=== PATIENT | female | born 1985 | race Caucasian/White ===

== ENCOUNTER 2018-03-17 18:30 | Emergency (ER) | payer BC ==
[2018-03-17 18:41] VITALS: BP 130/89
--- NOTE | 2018-03-17 19:00 | UC ---
Ear Complaint HPI - HPI Summary HPI Summary: 32 yo moses with right otalgia which started today no f/c decreased hearing recent URI - History of Current Complaint Chief Complaint: UCEar Stated Complaint: EAR PAIN Time Seen by Provider: 03/17/18 18:43 Hx Obtained From: Patient Hx Last Menstrual Period: 10/03/13 Onset/Duration: Gradual Onset Severity Initially: Mild Severity Currently: Moderate Pain Intensity: 7 Pain Scale Used: 0-10 Numeric Aggravating Factors: Nothing Alleviating Factors: Nothing Associated Signs/Symptoms: Positive: Hearing Loss - Allergies/Home Medications Allergies/Adverse Reactions: Allergies Allergy/AdvReac Type Severity Reaction Status Date / Time No Known Allergies Allergy Verified 03/17/18 18:40 Home Medications: Home Medications Multivitamin [Multivitamins] 1 cap PO 03/17/18 [History] PMH/Surg Hx/FS Hx/Imm Hx Previously Healthy: Yes - Surgical History Surgical History: Yes Surgery Procedure, Year, and Place: wisdom teeth removed - Family History Known Family History: Positive: Cardiac Disease, Hypertension, Diabetes - Social History Alcohol Use: Rare Substance Use Type: None Smoking Status (MU): Never Smoked Tobacco Have You Smoked in the Last Year: No - Immunization History Most Recent Influenza Vaccination: 09/08/15 Most Recent Tetanus Shot: 02/14/16 Most Recent Pneumonia Vaccination: never Review of Systems Constitutional: Negative Skin: Negative Eyes: Negative ENT: Ear Ache Respiratory: Negative Cardiovascular: Negative Gastrointestinal: Negative Genitourinary: Negative Motor: Negative Neurovascular: Negative Musculoskeletal: Negative Neurological: Negative Psychological: Negative Is Patient Immunocompromised?: No All Other Systems Reviewed And Are Negative: Yes Physical Exam Triage Information Reviewed: Yes Appearance: Well-Appearing, No Pain Distress, Well-Nourished Vital Signs: Initial Vital Signs Temp 98.6 F 03/17/18 18:37 Pulse 86 03/17/18 18:37 Resp 18 03/17/18 18:37 BP 130/89 03/17/18 18:37 Pulse Ox 99 03/17/18 18:37 Vital Signs Reviewed: Yes Eyes: Positive: Conjunctiva Clear ENT: Positive: Hearing grossly normal, TM bulging - R, TM red - R, Uvula midline. Negative: Nasal congestion, Nasal drainage, Tonsillar swelling, Tonsillar exudate, Trismus, Muffled voice, Hoarse voice, Dental tenderness, Sinus tenderness Neck: Positive: Supple, Nontender, No Lymphadenopathy Respiratory: Positive: Lungs clear, Normal breath sounds, No respiratory distress Cardiovascular: Positive: RRR, No Murmur Musculoskeletal: Positive: ROM Intact, No Edema Neurological: Positive: Alert Psychological Exam: Normal Skin Exam: Normal Ear Complaint Course/Dx - Differential Dx/Diagnosis Provider Diagnoses: right otitis media Discharge - Sign-Out/Discharge Documenting (check all that apply): Discharge/Admit/Transfer - Discharge Plan Condition: Stable Disposition: HOME Prescriptions: Amoxicillin PO (*) [Amoxicillin 875 MG (*)] 875 mg PO BID #20 tab Patient Education Materials: Ear Infection (ED) Referrals: Melissa Santos MD [Primary Care Provider] - If Needed Additional Instructions: recheck in 2-3 weeks if hearing not back to normal - Billing Disposition and Condition Condition: STABLE Disposition: HOME
== END 2018-03-17 19:00 | disposition home or self-care (01) ==
LOC: UCEAST 18:30
DX: H66.91 Otitis media, unspecified, right ear (principal)
CPT/HCPCS: 99212; G0463

== ENCOUNTER 2019-01-01 16:21 | Emergency (ER) | payer BC ==
[2019-01-01 16:55] VITALS: BP 127/90
[2019-01-01] MEDS ORDERED: Ondansetron INJ* 2 MG/ML VIAL IV ONE (17:04)
[2019-01-01] MEDS ORDERED: Ketorolac INJ* 30 MG/ML 1 ML VIAL IV PUSH ONE (17:04)
[2019-01-01] MEDS ORDERED: NS 0.9% 1000 ML** 1,000 ML IV.FLUID IV ONE (17:05)
--- NOTE | 2019-01-01 17:15 | ED ---
Abdominal Pain/Female - HPI Summary HPI Summary: 33-year-old female with abrupt onset 30 minutes ago of left flank and back pain that radiates into the front associated with sharp severe pain. She she is also vomited several times. She has no history of this happening before and denies any urinary symptoms to include dysuria or hematuria. There is strong family history for kidney stones in her mother. She denies any other contributory medical history or medications. No surgical history. - History of Current Complaint Chief Complaint: UCBackPain Stated Complaint: BACK PAIN, VOMITING, AND FREQUENT URINATION Time Seen by Provider: 01/01/19 17:04 Hx Obtained From: Patient Hx Last Menstrual Period: IUD Pain Intensity: 10 Allergies/Adverse Reactions: Allergies Allergy/AdvReac Type Severity Reaction Status Date / Time No Known Allergies Allergy Verified 01/01/19 16:55 PMH/Surg Hx/FS Hx/Imm Hx Previously Healthy: Yes - Emergency Endocrine/Hematology History: Denies: Hx Diabetes, Hx Thyroid Disease Cardiovascular History: Denies: Hx Hypertension Respiratory History: Denies: Hx Asthma, Hx Chronic Obstructive Pulmonary Disease (COPD) GI History: Denies: Hx Ulcer - Surgical History Surgery Procedure, Year, and Place: wisdom teeth removed Infectious Disease History: No Infectious Disease History: Denies: Hx Clostridium Difficile, Hx Hepatitis, Hx Human Immunodeficiency Virus (HIV), Hx of Known/Suspected MRSA, Hx Shingles, Hx Tuberculosis, Traveled Outside the [place] in Last 30 Days - Family History Known Family History: Positive: Cardiac Disease, Hypertension, Diabetes, Other - kidney stones in mother - Social History Occupation: Employed Full-time Alcohol Use: Rare Substance Use Type: Reports: None Smoking Status (MU): Never Smoked Tobacco Have You Smoked in the Last Year: No Review of Systems Positive: Chills. Negative: Fever Respiratory: Negative Positive: Abdominal Pain, Vomiting, Nausea Positive: flank pain. Negative: burning, dysuria, frequency, hematuria Musculoskeletal: Negative All Other Systems Reviewed And Are Negative: Yes Physical Exam Triage Information Reviewed: Yes Vital Signs On Initial Exam: Initial Vitals Temp Pulse Resp BP 97.3 F 98 16 127/90 01/01/19 16:51 01/01/19 16:51 01/01/19 16:51 01/01/19 16:51 Vital Signs Reviewed: Yes Appearance: Positive: Ill-Appearing, Pain Distress Skin: Positive: Warm, Dry Eyes: Positive: EOMI ENT: Positive: Normal ENT inspection Neck: Positive: Supple, Nontender Respiratory/Lung Sounds: Positive: Clear to Auscultation Cardiovascular: Positive: Tachycardia Abdomen Description: Positive: Nontender, No Organomegaly, Soft Pelvic Exam: Positive: Other - No CVA tenderness Musculoskeletal: Positive: Normal, Strength/ROM Intact Neurological: Positive: Normal, Alert, Oriented to Person Place, Time Psychiatric: Positive: Normal AVPU Assessment: Alert Diagnostics - Vital Signs Vital Signs Temp Pulse Resp BP 01/01/19 16:51 97.3 F 98 16 127/90 - Laboratory Lab Statement: Any lab studies that have been ordered have been reviewed, and results considered in the medical decision making process. Abdominal Pain Fem Course/Dx - Course Course Of Treatment: Nurse's notes reviewed. Patient is relating symptoms concerning for renal colic. There is no available CAT scan here today. She was given IV fluids, Toradol and Zofran for her symptoms. The ambulance was called and transfer arrangements were made for the ER. I spoke with chart nurse there who is expecting the patient. The patient is starting to improve here. - Diagnoses Provider Diagnoses: Renal colic on left side, Acute vomiting - Provider Notifications Discussed Care Of Patient With: Kylee Feldman - ER charge nurse expecting patient Discharge - Sign-Out/Discharge Documenting (check all that apply): Patient Departure All imaging exams completed and their final reports reviewed: No Studies - Discharge Plan Condition: Critical Disposition: TRANS HIGHER LVL OF CARE FAC Referrals: Melissa Santos MD [Primary Care Provider] - Additional Instructions: go directly to the ER - Billing Disposition and Condition Condition: CRITICAL Disposition: Trans Higher Lvl of Care Fac - Attestation Statements Document Initiated by Scribe: No
== END 2019-01-01 17:33 | disposition short-term general hospital (02) ==
LOC: UCEAST 16:21
DX: R11.10 Vomiting, unspecified (principal); N20.0 Calculus of kidney; Z84.1 Family history of disorders of kidney and ureter
CPT/HCPCS: 96374; 96375; 99213; G0463; J1885; J2405

== ENCOUNTER → 2019-01-01 17:57 | Emergency (ER) | payer BC ==
[~2019-01-01 17:57] MED LIST: ED cefTRIAXone 1 GM/50 ML 1 GM/50 ML PREMIX.SET IVPB ONE; Ketorolac INJ* 30 MG/ML 1 ML VIAL IV PUSH ONE; Morphine VIAL* 10 MG/ML 1 ML VIAL IV ONE; Ondansetron INJ* 2 MG/ML VIAL IV ONE; Sulfamethox/Trimethoprim DS 800/160* TAB PO ONE; cefTRIAXone(*) 2 GM ADDV.VIAL IVPB ONE; oxyCODONE/Acetamin 5/325 MG* TAB PO ONE
[2019-01-01 18:58] LABS: ABS Basophils 0 10^3/ul (0-0.2); ABS Eosinophils 0 10^3/ul (0-0.6); ABS Lymphocytes 1.2 10^3/ul (1.0-4.8); ABS Monocytes 0.5 10^3/ul (0-0.8); ABS Neutrophils 11.8 10^3/ul (1.5-7.7); ABS Nucleated RBC 0 10^3/ul; Eosinophil % 0.1 %; Hematocrit 42 % (35-47); Hemoglobin 14.5 g/dl (12.0-16.0); Lymphocyte % 8.6 %; Mean Corpuscular HGB Conc 34 g/dl (31-36); Mean Corpuscular Hemoglobin 29 pg (27-31); Mean Corpuscular Volume 84 fL (80-97); Mean Platelet Volume 8.4 fL (7.4-10.4); Nucleated Red Blood Cells % 0; Platelet Count 212 10^3/ul (150-450); Red Blood Count 5.07 10^6/ul (4.00-5.40); Red Cell Distribution Width 13 % (10.5-15); White Blood Count 13.5 10^3/ul (3.5-10.8)
[2019-01-01 19:17] LABS: ALT 15 U/L (7-52); AST 15 U/L (13-39); Albumin 4.5 g/dL (3.2-5.2); Albumin/Globulin Ratio 1.5 (1-3); Alkaline Phosphatase 52 U/L (34-104); Anion Gap 10 mmol/L (2-11); BUN/Creatinine Ratio 18.7 (8-20); Blood Urea Nitrogen 17 mg/dL (6-24); CO2 Carbon Dioxide 25 mmol/L (22-32); Calcium 8.8 mg/dL (8.6-10.3); Chloride 106 mmol/L (101-111); EGFR African American 86.1 (>60); EGFR Non-African American 71.2 (>60); Glucose 114 mg/dL (70-100); Potassium 3.1 mmol/L (3.5-5.0); Sodium 141 mmol/L (135-145); Total Protein 7.5 g/dL (6.4-8.9)
[2019-01-01 19:19] LABS: Activated Partial Thrombo Time 23.7 seconds (26.0-36.3); INR 0.97 (0.77-1.02)
--- NOTE | 2019-01-01 19:30 | ED ---
GI/ HPI - HPI Summary HPI Summary: This patient is a 33 year old F brought in by ambulance to [facility] upon referral from Urgent Care accompanied by her with a chief complaint of sudden onset left flank pain since 15:30. Pt reports that the pain radiates to the LLQ. The patient rates the pain 4/10 in severity. Symptoms aggravated by nothing. Symptoms alleviated by nothing. Patient reports emesis x4, chills, diaphoresis, increased frequency of urination, and dysuria. Patient denies fever , or hematuria. LNMP 2 weeks ago. Patient has an IUD. - History of Current Complaint Chief Complaint: EDFlankPain Time Seen by Provider: 01/01/19 18:01 Stated Complaint: FLANK PAIN Hx Obtained From: Patient Hx Last Menstrual Period: IUD Onset/Duration: Started Hours Ago, Atraumatic, Still Present Timing: Lasting Hours Severity: Moderate Current Severity: Mild Pain Intensity: 4 Location of Pain: Radiates to: - LLQ, Flank - left flank pain Pain Radiates to: LLQ Associated Signs and Symptoms: Positive: Nausea, Vomiting, Dysuria, Flank Pain - left side, Chills. Negative: Fever, Hematuria Aggravating Factor(s): Nothing Alleviating Factor(s): Nothing - Allergy/Home Medications Allergies/Adverse Reactions: Allergies Allergy/AdvReac Type Severity Reaction Status Date / Time No Known Allergies Allergy Verified 01/01/19 16:55 PMH/Surg Hx/FS Hx/Imm Hx Endocrine/Hematology History: Denies: Hx Diabetes, Hx Thyroid Disease Cardiovascular History: Denies: Hx Hypertension Respiratory History: Denies: Hx Asthma, Hx Chronic Obstructive Pulmonary Disease (COPD) GI History: Denies: Hx Ulcer - Surgical History Surgery Procedure, Year, and Place: wisdom teeth removed. x2 Infectious Disease History: No Infectious Disease History: Denies: Hx Clostridium Difficile, Hx Hepatitis, Hx Human Immunodeficiency Virus (HIV), Hx of Known/Suspected MRSA, Hx Shingles, Hx Tuberculosis, Traveled Outside the [place] in Last 30 Days - Family History Known Family History: Positive: Cardiac Disease, Hypertension, Diabetes, Other - kidney stones in mother - Social History Alcohol Use: Rare Substance Use Type: Reports: None Smoking Status (MU): Never Smoked Tobacco Have You Smoked in the Last Year: No Review of Systems Positive: Chills. Negative: Fever Negative: Erythema Negative: Sore Throat Negative: Chest Pain Negative: Shortness Of Breath, Cough Positive: Abdominal Pain - LLQ pain, Vomiting, Nausea Positive: dysuria, frequency - increased, flank pain - left. Negative: hematuria Negative: Myalgia, Edema Negative: Rash Neurological: Negative - negative dizziness All Other Systems Reviewed And Are Negative: Yes Physical Exam - Summary Physical Exam Summary: Constitutional: Well-developed, Well-nourished, Alert. (-) Distressed Skin: Warm, Dry HENT: Normocephalic; Atraumatic Eyes: Conjunctiva normal Neck: Musculoskeletal ROM normal neck. (-) JVD, (-) Stridor, (-) Tracheal deviation Cardio: Rhythm regular, rate normal, Heart sounds normal; Intact distal pulses; The pedal pulses are 2+ and symmetric. Radial pulses are 2+ and symmetric. (-) Murmur Pulmonary/Chest wall: Effort normal. (-) Respiratory distress, (-) Wheezes, (-) Rales Abd: Soft, (-) epigastric tenderness, (-) Distension, (-) Guarding, (-) Rebound , mild left CVA tenderness. Musculoskeletal: (-) Edema Lymph: (-) Cervical adenopathy Neuro: Alert, Oriented x3 Psych: Mood and affect Normal Triage Information Reviewed: Yes Vital Signs On Initial Exam: Initial Vitals Temp Pulse Resp BP Pulse Ox 98.0 F 76 15 136/74 99 01/01/19 18:16 01/01/19 18:16 01/01/19 18:16 01/01/19 18:16 01/01/19 18:16 Vital Signs Reviewed: Yes Diagnostics - Vital Signs Vital Signs Temp Pulse Resp BP Pulse Ox 01/01/19 18:16 98.0 F 76 15 136/74 99 - Laboratory Lab Results: Lab Results 01/01/19 01/01/19 01/01/19 Range/Units 18:49 18:49 18:49 WBC 13.5 H (3.5-10.8) 10^3/ul RBC 5.07 (4.00-5.40) 10^6/ul Hgb 14.5 (12.0-16.0) g/dl Hct 42 (35-47) % MCV 84 (80-97) fL MCH 29 (27-31) pg MCHC 34 (31-36) g/dl RDW 13 (10.5-15) % Plt Count 212 (150-450) 10^3/ul MPV 8.4 (7.4-10.4) fL Neut % (Auto) 87.6 % Lymph % (Auto) 8.6 % [facility] % (Auto) 3.6 % Eos % (Auto) 0.1 % Baso % (Auto) 0.1 % Absolute Neuts (auto) 11.8 H (1.5-7.7) 10^3/ul Absolute Lymphs (auto) 1.2 (1.0-4.8) 10^3/ul Absolute Monos (auto) 0.5 (0-0.8) 10^3/ul Absolute Eos (auto) 0 (0-0.6) 10^3/ul Absolute Basos (auto) 0 (0-0.2) 10^3/ul Absolute Nucleated RBC 0 10^3/ul Nucleated RBC % 0 INR (Anticoag Therapy) 0.97 (0.77-1.02) APTT 23.7 L (26.0-36.3) seconds Sodium 141 (135-145) mmol/L Potassium 3.1 L (3.5-5.0) mmol/L Chloride 106 (101-111) mmol/L Carbon Dioxide 25 (22-32) mmol/L Anion Gap 10 (2-11) mmol/L BUN 17 (6-24) mg/dL Creatinine 0.91 (0.51-0.95) mg/dL Est GFR ( Amer) 86.1 (>60) Est GFR (Non-Af Amer) 71.2 (>60) BUN/Creatinine Ratio 18.7 (8-20) Glucose 114 H (70-100) mg/dL Lactic Acid (0.5-2.0) mmol/L Calcium 8.8 (8.6-10.3) mg/dL Total Bilirubin 0.30 (0.2-1.0) mg/dL AST 15 (13-39) U/L ALT 15 (7-52) U/L Alkaline Phosphatase 52 (34-104) U/L Total Protein 7.5 (6.4-8.9) g/dL Albumin 4.5 (3.2-5.2) g/dL Globulin 3.0 (2-4) g/dL Albumin/Globulin Ratio 1.5 (1-3) 01/01/19 Range/Units 18:50 WBC (3.5-10.8) 10^3/ul RBC (4.00-5.40) 10^6/ul Hgb (12.0-16.0) g/dl Hct (35-47) % MCV (80-97) fL MCH (27-31) pg MCHC (31-36) g/dl RDW (10.5-15) % Plt Count (150-450) 10^3/ul MPV (7.4-10.4) fL Neut % (Auto) % Lymph % (Auto) % [facility] [place] % (Auto) % Eos % (Auto) % Baso % (Auto) % Absolute Neuts (auto) (1.5-7.7) 10^3/ul Absolute Lymphs (auto) (1.0-4.8) 10^3/ul Absolute Monos (auto) (0-0.8) 10^3/ul Absolute Eos (auto) (0-0.6) 10^3/ul Absolute Basos (auto) (0-0.2) 10^3/ul Absolute Nucleated RBC 10^3/ul Nucleated RBC % INR (Anticoag Therapy) (0.77-1.02) APTT (26.0-36.3) seconds Sodium (135-145) mmol/L Potassium (3.5-5.0) mmol/L Chloride (101-111) mmol/L Carbon Dioxide (22-32) mmol/L Anion Gap (2-11) mmol/L BUN (6-24) mg/dL Creatinine (0.51-0.95) mg/dL Est GFR ( Amer) (>60) Est GFR (Non-Af Amer) (>60) BUN/Creatinine Ratio (8-20) Glucose (70-100) mg/dL Lactic Acid 1.6 (0.5-2.0) mmol/L Calcium (8.6-10.3) mg/dL Total Bilirubin (0.2-1.0) mg/dL AST (13-39) U/L ALT (7-52) U/L Alkaline Phosphatase (34-104) U/L Total Protein (6.4-8.9) g/dL Albumin (3.2-5.2) g/dL Globulin (2-4) g/dL Albumin/Globulin Ratio (1-3) Result Diagrams: 01/01/19 18:49 01/01/19 18:49 Lab Statement: Any lab studies that have been ordered have been reviewed, and results considered in the medical decision making process. - Additional Comments Diagnostic Additional Comments: Renal US: Interpreted by radiologist. IMPRESSION: Constellation of findings is suggestive of obstructing ureteral stone. This could be confirmed with CT if necessary to determine appropriate treatment. Dr. Pierce has reviewed this report. Re-Evaluation - Re-Evaluation First Eval Change: Improved - All pain resolved. Feeling well. She been able to urinate a small amount. GIGU Course/Dx - Course Course Of Treatment: This patient is a 33 year old F brought in by ambulance to [facility] upon referral from Urgent Care accompanied by her with a chief complaint of sudden onset left flank pain since 15:30. Pt reports that the pain radiates to the LLQ. Patient reports emesis x4, chills, diaphoresis, increased frequency of urination, and dysuria. Patient denies fever, or hematuria. LNMP 2 weeks ago. Patient has an IUD. Renal US reveals, per radiologist, Constellation of findings is suggestive of obstructing ureteral stone. ED physician has reviewed this radiology report. In the ED course the patient was given toradol, morphine, Zofran, and rocephin. The stone was 2 mm and the ureterovesicular junction, I expect the patient to be easily passed the stone. She is urinating and feeling better. Urology follow-up, pain medications provided. - Diagnoses Provider Diagnoses: Ureteral stone Discharge - Sign-Out/Discharge Documenting (check all that apply): Sign-Out Patient - upon provider shift change pending CT abd/pelvis Signing out patient TO: Gerry Myles Patient Received Moderate/Deep Sedation with Procedure: No - Discharge Plan Condition: Stable Prescriptions: Ketorolac TAB * [Toradol TAB *] 10 mg PO Q8H PRN #12 tab PRN Reason: Pain Scale 6-10 oxyCODONE/Acetamin 5/325 MG* [Percocet 5/325 TAB*] 1 tab PO Q6H PRN #12 tab MDD 4 PRN Reason: Pain - Moderate To Severe Sulfamethox/Trimethoprim DS* [Bactrim DS 800/160 TAB*] 1 tab PO BID #14 tab Tamsulosin CAP* [Flomax CAP*] 0.4 mg PO DAILY #5 cap Patient Education Materials: Ureteral Stones (ED) Forms: *Work Release Referrals: José Delgado MD [Medical Doctor] - 2 Days Additional Instructions: Drink plenty of fluids. Return to the ER if you are unable to urinate or develop a fever. Toradol pills for pain, oxycodone for pain, do not drive on this medication or operate heavy machinery. Be sure to follow up with the urologist early next week. Be sure to finish her antibiotics. - Billing Disposition and Condition Condition: STABLE - Attestation Statements Document Initiated by Scribe: Yes Documenting Scribe: Racquel Nunes Provider For Whom Annmarie is Documenting (Include Credential): Ryan Pierce MD Scribe Attestation: Racquel Batres, scribed for Ryan Pierce MD on 01/01/19 at 2235. Scribe Documentation Reviewed: Yes Provider Attestation: The documentation as recorded by the skyibRacquel ruiz accurately reflects the service I personally performed and the decisions made by Ryan pitts MD Status of Scribe Document: Viewed
[2019-01-01 19:58] LABS: Urine Appearance Cloudy; Urine Bacteria 1+ (Absent); Urine Bilirubin Negative (Negative); Urine Blood 2+ (Negative); Urine Color Yellow; Urine Glucose Negative (Negative); Urine Ketones 2+ (Negative); Urine Nitrite Negative (Negative); Urine Protein Negative (Negative); Urine Red Blood Cell 1+(3-5/hpf) (Absent); Urine Specific Gravity 1.024 (1.010-1.030); Urine Squamous Epithelial Cell Present (Absent); Urine Urobilinogen Negative (Negative); Urine White Blood Cell 1+(6-10/hpf) (Absent)
[2019-01-01 20:12] LABS: HCG Pregnancy < 0.60 mIU/mL
[2019-01-01 23:10] VITALS: BP 122/69
--- NOTE | 2019-01-03 16:22 | PN ---
Progress Note - Progress Note Date of Service: 01/01/19 Note: Blood cultures called to me at 4:05 PM These are positive for gram-positive cocci without staph or MRSA This is one out of 4 blood cultures Called the patient at 4:15 to discuss results Patient was placed on Bactrim prior to discharge for UTI and kidney stone Patient states she is afebrile, not having sweats or chills and does not have any pain She states she is feeling much better I believe at this time she is safe for home, however discussed return precautions with the patient She voices understanding and understands to return if she develops any fevers, sweats, chills, worsening flank pain or urinary symptoms
== END | disposition home or self-care (01) ==
LOC: ED 17:57
DX: N20.1 Calculus of ureter (principal); R10.84 Generalized abdominal pain; R11.2 Nausea with vomiting, unspecified; R30.0 Dysuria
CPT/HCPCS: 36415; 74176; 76775; 80053; 81003; 81015; 83605; 84702; 85025; 85610; 85730; 87040; 87077; 87086; 87150; 87205; 96374; 96375; 99284; A9270-GY; J0696; J1885; J2270; J2405

== ENCOUNTER 2020-02-26 10:21 | Emergency (ER) | payer BC ==
[2020-02-26] MEDS ORDERED: NS 0.9% 1000 ML** 1,000 ML IV ONE (10:40)
[2020-02-26] MEDS ORDERED: Ketorolac INJ* 30 MG/ML 1 ML VIAL IV PUSH ONE (10:40)
[2020-02-26] MEDS ORDERED: Ondansetron INJ* 2 MG/ML VIAL IV ONE (10:40)
[2020-02-26 10:56] LABS: Urine Appearance Cloudy; Urine Bilirubin Negative (Negative); Urine Blood 2+ (Negative); Urine Color Yellow; Urine Glucose Negative (Negative); Urine Ketones Negative (Negative); Urine Nitrite Negative (Negative); Urine Protein Negative (Negative); Urine Specific Gravity 1.029 (1.010-1.030); Urine Urobilinogen Negative (Negative)
[2020-02-26 11:00] LABS: ABS Lymphocytes 0.8 10^3/ul (1.0-4.8); ABS Monocytes 0.4 10^3/ul (0-0.8); ABS Neutrophils 8.7 10^3/ul (1.5-7.7); Eosinophil % 0.1 %; Hematocrit 42 % (35-47); Hemoglobin 14.3 g/dL (12.0-16.0); Lymphocyte % 8.3 %; Mean Corpuscular HGB Conc 34 g/dL (31-36); Mean Corpuscular Hemoglobin 29 pg (27-31); Mean Corpuscular Volume 85 fL (80-97); Mean Platelet Volume 8.6 fL (7.4-10.4); Platelet Count 211 10^3/uL (150-450); Red Blood Count 4.86 10^6 /uL (3.70-4.87); Red Cell Distribution Width 13 % (10-15)
--- NOTE | 2020-02-26 11:00 | ED ---
Abdominal Pain/Female - HPI Summary HPI Summary: Pt. is a 34 y.o female who presents to the ER for left sided flank pain and N/ V. Pt. states she started with mild dysuria bout 3 days ago that progressed to flank pain and vomiting today. Denies fever, chills, cp, sob, cough. Pt. states she has had kidney stones in the past that presented similar. Sxs are moderate in severity. No current modifying factors. - History of Current Complaint Chief Complaint: EDFlankPain Stated Complaint: L FLANK PAIN PER EMS Time Seen by Provider: 02/26/20 10:22 Hx Obtained From: Patient Hx Last Menstrual Period: IUD Pain Intensity: 9 Allergies/Adverse Reactions: Allergies Allergy/AdvReac Type Severity Reaction Status Date / Time No Known Allergies Allergy Verified 05/28/19 08:16 Home Medications: Home Medications Ketorolac TAB * [Toradol TAB *] 10 mg PO Q8H PRN #12 tab 01/01/19 [Rx] Sulfamethox/Trimethoprim DS* [Bactrim DS 800/160 TAB*] 1 tab PO BID #14 tab [Rx] Tamsulosin CAP* [Flomax CAP*] 0.4 mg PO DAILY #5 cap 01/01/19 [Rx] oxyCODONE/Acetamin 5/325 MG* [Percocet 5/325 TAB*] 1 tab PO Q6H PRN #12 tab MDD 4 01/01/19 [Rx] Ondansetron TAB* [Zofran 4 MG Tab*] 4 mg PO Q6H PRN #12 tab 02/26/20 [Rx] Sulfamethox/Trimethoprim DS* [Bactrim DS 800/160 TAB*] 1 tab PO BID #20 tab 10/06 [Rx] Tamsulosin CAP* [Flomax CAP*] 0.4 mg PO DAILY #5 cap 02/26/20 [Rx] PMH/Surg Hx/FS Hx/Imm Hx Previously Healthy: Yes Endocrine/Hematology History: Denies: Hx Diabetes, Hx Thyroid Disease Cardiovascular History: Denies: Hx Hypertension Respiratory History: Denies: Hx Asthma, Hx Chronic Obstructive Pulmonary Disease (COPD) GI History: Denies: Hx Ulcer - Surgical History Surgery Procedure, Year, and Place: wisdom teeth removed. x2 Infectious Disease History: No Infectious Disease History: Denies: Hx Clostridium Difficile, Hx Hepatitis, Hx Human Immunodeficiency Virus (HIV), Hx of Known/Suspected MRSA, Hx Shingles, Hx Tuberculosis, Traveled Outside the [place] in Last 30 Days - Family History Known Family History: Positive: Cardiac Disease, Hypertension, Diabetes, Other - kidney stones in mother - Social History Occupation: Works From/At Home Lives: With Family Alcohol Use: Rare Substance Use Type: Reports: None Smoking Status (MU): Never Smoked Tobacco Have You Smoked in the Last Year: No Review of Systems Constitutional: Negative Negative: Fever, Chills Cardiovascular: Negative Respiratory: Negative Positive: Abdominal Pain, Vomiting, Nausea Positive: flank pain Neurological/Mental Status: Negative All Other Systems Reviewed And Are Negative: Yes Physical Exam Triage Information Reviewed: Yes Vital Signs On Initial Exam: Initial Vitals Temp Pulse Resp BP Pulse Ox 97.3 F 78 19 128/87 98 02/26/20 10:28 02/26/20 10:28 02/26/20 10:28 02/26/20 10:28 02/26/20 10:28 Vital Signs Reviewed: Yes Appearance: Positive: Well-Appearing - Pt. sitting up in bed in NAD. Appears mildy uncomfortable. Skin: Positive: Warm, Dry Head/Face: Positive: Normal Head/Face Inspection Eyes: Positive: Normal, EOMI Neck: Positive: Supple Respiratory/Lung Sounds: Positive: Clear to Auscultation, Breath Sounds Present Cardiovascular: Positive: Normal, RRR Abdomen Description: Positive: Nontender, Soft, Other: - Left CVA tenderness. Neurological: Positive: Normal, CN Intact II-III Psychiatric: Positive: Affect/Mood Appropriate Procedures - Sedation Patient Received Moderate/Deep Sedation with Procedure: No Diagnostics - Vital Signs Vital Signs Temp Pulse Resp BP Pulse Ox 02/26/20 10:28 97.3 F 78 19 128/87 98 - Laboratory Lab Results: Lab Results 02/26/20 Range/Units 10:40 Urine Color Yellow Urine Appearance Cloudy Urine pH 5.0 (5-9) Ur Specific [place] 1.029 (1.010-1.030) Urine Protein Negative (Negative) Urine Ketones Negative (Negative) Urine Blood 2+ A (Negative) Urine Nitrate Negative (Negative) Urine Bilirubin Negative (Negative) Urine Urobilinogen Negative (Negative) Ur Leukocyte Esterase 1+ A (Negative) Urine Glucose Negative (Negative) Result Diagrams: 02/26/20 10:54 02/26/20 10:54 Lab Statement: Any lab studies that have been ordered have been reviewed, and results considered in the medical decision making process. Abdominal Pain Fem Course/Dx - Course Course Of Treatment: Pt. with left flank pain, N/V. Afebrile. Given IV fluids, toradol and zofran. Labs unremarkable including normal WBC. U/A is nitrate negative, with positive RBCs, leukocytes, and bacteria. U/S per radiology: IMPRESSION: #. Mild pelvic caliectasis of the LEFT kidney with suggestion of urothelium thickening. most likely secondary to inflammation. Consider potential pyelonephritis. #. Increased LEFT renal cortical echogenicity which may be seen with medical renal. disease. #. Limited images of the urinary bladder document symmetric bilateral ureteral jets. Visualized 0.5 cm calcification at the approximate level of the LEFT ureterovesicular. junction may represent a pre-existing phlebolith based on the January 01, 2019 CT. No. dilatation of the distal LEFT ureter visualized within limits of ultrasound. Pt. feeling better after toradol and pain 12/27. Case discussed with Dr. Cooney, urology, with concern for stone and bacteria urine, however pt. is well appearing, afebrile, and normal WBC. He recommends 2gm iv rocephin and obtain KUB to look for large stone. KUB per radiolgoy: REPORT AND IMPRESSION: #. In addition to pelvic phleboliths there is suggestion of a 0.5 cm length by 0.15 cm. transverse stone at the level of the LEFT ureterovesicular junction. No additional. calcifications suspicious for urolithiasis. #. IUD noted. #. Unremarkable bowel gas pattern and soft tissue contours. Discussed results with Dr. Cooney. He is okay with dc if pt. looks well and pain controlled. Results discussed. Pt. notes she has percocet from last stone at home. To increased fluids. Bactrim, zofran and flomax. Pt. will strain urine and fu with urology on Friday is pain persist. Pt .will return to ER for increased pain, fever, vomiting, or if concerned. Pt. understands and agrees with plan. - Diagnoses Differential Diagnosis: Positive: Constipation, Diverticulitis, , Renal Colic, Urinary Tract Infection Provider Diagnoses: Urolithiasis, Bacteria in urine Discharge ED - Sign-Out/Discharge Documenting (check all that apply): Patient Departure - Discharge Plan Condition: Improved Disposition: HOME Prescriptions: Ondansetron TAB* [Zofran 4 MG Tab*] 4 mg PO Q6H PRN #12 tab PRN Reason: Nausea Sulfamethox/Trimethoprim DS* [Bactrim DS 800/160 TAB*] 1 tab PO BID #20 tab Tamsulosin CAP* [Flomax CAP*] 0.4 mg PO DAILY #5 cap Patient Education Materials: Kidney Stones (ED), Flank Pain (ED) Referrals: Melissa Santos MD [Primary Care Provider] - Additional Instructions: Follow up with urology if symptoms persist Increase fluids Medication as directed Return to ER for fever, uncontrollable vomiting, pain or if concerned - Billing Disposition and Condition Condition: IMPROVED Disposition: Home - Attestation Statements Provider Attestation: I was available for consult. This patient was seen by the Y[facility]. The patient was not presented to, seen by, or examined by me. Carlos Mack MD
[2020-02-26 11:01] LABS: Urine Bacteria 1+ (Absent); Urine Red Blood Cell 3+(>10/hpf) (Absent); Urine Squamous Epithelial Cell Present (Absent); Urine White Blood Cell Trace(0-5/hpf) (Absent)
[2020-02-26 11:22] LABS: ALT 18 U/L (7-52); AST 15 U/L (13-39); Albumin 4.2 g/dL (3.2-5.2); Albumin/Globulin Ratio 1.4 (1-3); Alkaline Phosphatase 51 U/L (34-104); Anion Gap 8 mmol/L (2-11); Blood Urea Nitrogen 18 mg/dL (6-24); CO2 Carbon Dioxide 22 mmol/L (22-32); Chloride 106 mmol/L (101-111); EGFR African American 96.6 (>60); EGFR Non-African American 79.8 (>60); Glucose 120 mg/dL (70-100); Potassium 3.9 mmol/L (3.5-5.0); Sodium 136 mmol/L (135-145); Total Protein 7.2 g/dL (6.4-8.9)
[2020-02-26 11:29] LABS: HCG Pregnancy < 0.60 mIU/mL
[2020-02-26] MEDS ORDERED: cefTRIAXone(*) 1 GM in NS 0.9% 50 ML* 50 ML IVPB ONE ×2 (12:21→12:39)
[2020-02-26 14:03] VITALS: BP 121/69
== END 2020-02-26 13:57 | disposition home or self-care (01) ==
LOC: ED 10:21
DX: R10.84 Generalized abdominal pain (principal); N20.9 Urinary calculus, unspecified; R82.71 Bacteriuria; Z79.899 Other long term (current) drug therapy
CPT/HCPCS: 36415; 74018; 76775; 80053; 81003; 81015; 84702; 85025; 87086; 96365; 96375; 99283; J0696; J1885; J2405